=== PATIENT | male | born 1960 | race Caucasian/White ===

== ENCOUNTER 2016-12-05 20:57 | Emergency (ER) | payer OTHER ==
[~2016-12-05] VITALS: Ht 180.3 cm; Wt 93.9 kg
[2016-12-05 21:00] VITALS: TEMP 37; Ht 180.3 cm; Wt 93.9 kg
[2016-12-05] MEDS ORDERED: SODIUM CHLORIDE 0.9% 1000ML 1,000 ML IV STA (21:17)
[2016-12-05] MEDS ORDERED: SYN150 PO (21:34)
[2016-12-05] MEDS ORDERED: METF-384 PO (21:34)
[2016-12-05] MEDS ORDERED: ATOR-22 PO (21:34)
[2016-12-05] MEDS ORDERED: NVLGI/PEN SQ (21:34)
[2016-12-05] MEDS ORDERED: VICTOZA INJ (21:34)
[2016-12-05] MEDS ORDERED: INSDGIPEN SC (21:34)
[2016-12-05] MEDS ORDERED: LISI-729 PO (21:34)
[2016-12-05 21:41] LABS: BASO % 0.6 %; BASO ABS # 0.04 K/uL (0-0.2); COMPLETE YES; EOS % 4.5 %; HEMATOCRIT 34.4 % (42-52); IG% 0.1 %; LYMPH % 28.8 %; LYMPH ABS # 2.05 K/uL (1.2-3.4); MEAN CELL VOLUME 93.5 fL (80-100); MEAN CORPUSCULAR HEMOGLOBIN 32.9 pg (25-34); MEAN CORPUSCULAR HGB CONC 35.2 g/dl (32-36); MEAN PLATELET VOLUME 10.1 fL (7.4-10.4); PLATELET COUNT 247 K/uL (130-400); RED BLOOD COUNT 3.68 M/uL (4.7-6.1); WHITE BLOOD COUNT 7.13 K/uL (4.8-10.8)
--- NOTE | 2016-12-05 21:44 | DIAGNOSTIC IMAGING REPORT ---
CHEST ONE VIEW PORTABLE CLINICAL HISTORY: Pain, radiating to the abdomen. COMPARISON STUDY: No previous studies for comparison. FINDINGS: The cardiac and mediastinal contours are normal. There is no evidence of focal pulmonary consolidation. There is no evidence of failure. No pleural effusions are visualized.[ No free intraperitoneal air is visualized. IMPRESSION: No active disease in the chest. Electronically signed by: Mark Dewitt M.D. 12/05/2016 9:43 PM Dictated Date/Time: 12/05/2016 9:42 PM
[2016-12-05 21:54] LABS: PROTHROMBIN TIME (PATIENT) 10.3 SECONDS (9.0-12.0)
[2016-12-05 22:32] LABS: BUN/CREATININE RATIO 16.1 (10-20); CREATININE 1.4 mg/dl (0.60-1.40); POTASSIUM 5.6 mmol/L (3.5-5.1)
[2016-12-05 22:42] LABS: URINE APPEARANCE CLEAR (CLEAR); URINE BILIRUBIN NEG (NEG); URINE COLOR YELLOW; URINE NITRITE NEG (NEG); UROBILINOGEN NEG (NEG)
[2016-12-05 22:45] LABS: MANUAL MICROSCOPIC REQUIRED? NO; REVIEW REQ? NO
[2016-12-05 23:08] VITALS: BP 138/89; PULSE 94; O2SAT 97
--- NOTE | 2016-12-05 23:19 | EMERGENCY ROOM VISIT NOTE ---
History Report prepared by Howard: Chilango Santos Under the Supervision of: Dr. Chuck Calderon D.O. First contact with patient: 21:06 Chief Complaint: ABNORMAL LABS Stated Complaint: HIGH POTASSIUM LEVELS History of Present Illness The patient is a 56 year old male who presents to the Emergency Room with complaints of hyperkalemia beginning today. He had routine blood work for diabetes drawn today by his PCP which revealed hyperkalemia and the patient was referred to the ED for further evaluation. He states that his potassium was found to be 6.1. The patient has no complaints. He denies any nausea, palpitations, leg swelling, SOB, or vomiting. He states that he occasionally experiences intermittent chest pain, and nausea recently. The patient estimates that his blood sugar has been about 220 on average lately. He is on lisinopril. He has a history of a thyroidectomy. Source of History: patient Onset: Today Symptom Intensity: Potassium of 6.1 Associated Symptoms: + chest pain (intermittent), + nausea, No SOB Note: The patient denies any nausea, palpitations, or leg swelling. Review of Systems See HPI for pertinent positives & negatives. A total of 10 systems reviewed and were otherwise negative. Past Medical & Surgical Medical Problems: (1) Diabetes Surgical Problems: (1) H/O thyroidectomy Family History No pertinent family history stated. Social History Smoking Status: Never Smoker Occupation Status: employed Current/Historical Medications Scheduled Atorvastatin (Lipitor), 20 MG PO QPM Insulin Aspart (Novolog Flexpen), 12 UNITS SQ TIDM Insulin Glargine (Lantus Solostar), 16 UNITS SC QPM Levothyroxine Sodium (Synthroid), 150 MCG PO QAM Lisinopril (Zestril), 5 MG PO QAM Metformin Hcl (Glucophage), 1,000 MG PO BID [Victoza], 3 ML INJ QAM Allergies Coded Allergies: No Known Allergies (Unverified , 12/05/16) Physical Exam Vital Signs Date Time Temp Pulse Resp B/P (MAP) Pulse Ox O2 Delivery O2 Flow Rate FiO2 12/05/16 23:08 94 18 138/89 97 12/05/16 22:30 129/82 12/05/16 22:25 134/78 12/05/16 22:05 87 16 12/05/16 22:00 134/81 12/05/16 21:57 85 18 96 6/21/17 21:39 93 12/05/16 21:37 87 18 137/87 97 Room Air 12/05/16 21:36 137/87 12/05/16 21:00 37.0 96 18 145/87 97 Room Air Physical Exam GENERAL: Patient is awake, alert, and in no acute distress. Patient is resting comfortably and showing no signs of anxiety EYES: The conjunctivae are clear. The pupils are round and reactive. EARS, NOSE, MOUTH AND THROAT: The nose is without any evidence of any deformity. Mucous membranes are moist tongue is midline NECK: The neck is nontender and supple. RESPIRATORY: Normal respiratory effort is noted there is no evidence of wheezing rhonchi or rales CARDIOVASCULAR: Regular rate and rhythm noted there no murmurs rubs or gallops normal S1 normal S2 GASTROINTESTINAL: The abdomen is soft. Bowel sounds are present in all quadrants. Abdomen is nontender MUSCULOSKELETAL/EXTREMITIES: There is no evidence of gross deformity full range of motion is noted in the hips and shoulders SKIN: There is no obvious evidence of any rash. There are no petechiae, pallor or cyanosis noted. NEUROLOGIC: Patient is awake alert and oriented x3 strength is symmetric patellar reflexes are 2+ bilaterally Medical Decision & Procedures ER Provider Diagnostic Interpretation: X-ray results as stated below per interpretation by me and the radiologist. CHEST ONE VIEW PORTABLE FINDINGS: The cardiac and mediastinal contours are normal. There is no evidence of focal pulmonary consolidation. There is no evidence of failure. No pleural effusions are visualized.[ No free intraperitoneal air is visualized. IMPRESSION: No active disease in the chest. Electronically signed by: Mark Dewitt M.D. Laboratory Results 12/05/16 21:22 Red Blood Count 3.68, Mean Corpuscular Volume 93.5, Mean Corpuscular Hemoglobin 32.9, Mean Corpuscular Hemoglobin Concent 35.2, Mean Platelet Volume 10.1, Neutrophils (%) (Auto) 59.0, Lymphocytes (%) (Auto) 28.8, Monocytes (%) (Auto) 7.0, Eosinophils (%) (Auto) 4.5, Basophils (%) (Auto) 0.6, Neutrophils # (Auto) 4.21, Lymphocytes # (Auto) 2.05, Monocytes # (Auto) 0.50, Eosinophils # (Auto) 0.32, Basophils # (Auto) 0.04 12/05/16 21:22 Test 12/05/16 21:22 12/05/16 22:27 White Blood Count 7.13 K/uL (4.8-10.8) Red Blood Count 3.68 M/uL (4.7-6.1) Hemoglobin 12.1 g/dL (14.0-18.0) Hematocrit 34.4 % (42-52) Mean Corpuscular Volume 93.5 fL (80-100) Mean Corpuscular Hemoglobin 32.9 pg (25-34) Mean Corpuscular Hemoglobin Concent 35.2 g/dl (32-36) Platelet Count 247 K/uL (130-400) Mean Platelet Volume 10.1 fL (7.4-10.4) Neutrophils (%) (Auto) 59.0 % Lymphocytes (%) (Auto) 28.8 % Monocytes (%) (Auto) 7.0 % Eosinophils (%) (Auto) 4.5 % Basophils (%) (Auto) 0.6 % Neutrophils # (Auto) 4.21 K/uL (1.4-6.5) Lymphocytes # (Auto) 2.05 K/uL (1.2-3.4) Monocytes # (Auto) 0.50 K/uL (0.11-0.59) Eosinophils # (Auto) 0.32 K/uL (0-0.5) Basophils # (Auto) 0.04 K/uL (0-0.2) RDW Standard Deviation 44.9 fL (36.4-46.3) RDW Coefficient of Variation 13.1 % (11.5-14.5) Immature Granulocyte % (Auto) 0.1 % Immature Granulocyte # (Auto) 0.01 K/uL (0.00-0.02) Prothrombin Time 10.3 SECONDS (9.0-12.0) Prothromb Time International Ratio 1.0 (0.9-1.1) Activated Partial Thromboplast Time 26.2 SECONDS (21.0-31.0) Partial Thromboplastin Ratio 1.0 Anion Gap 10.0 mmol/L (3-11) Est Creatinine Clear Calc Drug Dose 67.3 ml/min Estimated GFR () 63.7 Estimated GFR (Non- 55.0 BUN/Creatinine Ratio 16.1 (10-20) Calcium Level 9.0 mg/dl (8.5-10.1) Total Bilirubin 0.4 mg/dl (0.2-1) Direct Bilirubin 0.1 mg/dl (0-0.2) Aspartate Amino Transf (AST/SGOT) 16 U/L (15-37) Alanine Aminotransferase (ALT/SGPT) 30 U/L (12-78) Alkaline Phosphatase 99 U/L (45-117) Total Protein 7.3 gm/dl (6.4-8.2) Albumin 4.1 gm/dl (3.4-5.0) Lipase 496 U/L (73-393) Urine Color YELLOW Urine Appearance CLEAR (CLEAR) Urine pH 5.0 (4.5-7.5) Urine Specific [place] 1.020 (1.000-1.030) Urine Protein NEG (NEG) Urine Glucose (UA) 3+ (NEG) Urine Ketones NEG (NEG) Urine Occult Blood NEG (NEG) Urine Nitrite NEG (NEG) Urine Bilirubin NEG (NEG) Urine Urobilinogen NEG (NEG) Urine Leukocyte Esterase NEG (NEG) Laboratory results per my review. Medications Administered Medications (Trade) Dose Ordered Sig/Umu Route Start Time Stop Time Status Last Admin Dose Admin Sodium Chloride 1,000 ml @ 999 mls/hr Q1H1M STAT IV 12/05/16 21:17 12/05/16 22:17 DC 12/05/16 21:30 999 MLS/HR ECG Indication: other (hyperkalemia) Rate (beats per minute): 87 Rhythm: normal sinus Findings: no ectopy, other (No acute ST segment abnormalities) Comparison ECG Date: no prior available ED Course 2113: The patient was evaluated in room B7. A complete history and physical examination were performed. 2116: Ordered NSS 1,000 ml @ 999 mls/hr IV. 2304: Upon reevaluation, the patient is resting comfortably. I discussed the results and treatment plan with him. He verbalized agreement of the treatment plan. The patient was discharged home. Medical Decision Differential diagnosis: Etiologies such as premature contractions, electrolyte abnormality, cardiac dysrhythmia, thyroid dysfunction, pulmonary embolism, infection, gastrointestinal, as well as others were entertained. Nursing notes reviewed. The patient is a 56-year-old diabetic who has a history of mild renal insufficiency who was placed on lisinopril by his primary care physician. He presented to the emergency department this evening for abnormal laboratory studies. The patient was found have hyperkalemia as an outpatient was sent to the emergency department. He was treated with IV fluids. Repeat laboratory studies showed an elevated potassium as well as an elevated creatinine but I feel that the patient can manage this as an outpatient at this time. His EKG showed no acute changes. I encouraged him to have his laboratory studies repeated in 24 hours and to hold his lisinopril until he was reevaluated by his primary care physician. The patient states that he's been placed on lisinopril for renal protection and not for hypertension. He may need to be placed on a different antihypertensive. He was encouraged to return emergency department immediately if symptoms change worsen or the need arises. Impression Primary Impression: Hyperkalemia Scribe Attestation The scribe's documentation has been prepared under my direction and personally reviewed by me in its entirety. I confirm that the note above accurately reflects all work, treatment, procedures, and medical decision making performed by me. Departure Information Dispostion Home / Self-Care Referrals No Doctor, Assigned (PCP) Forms HOME CARE DOCUMENTATION FORM, IMPORTANT VISIT INFORMATION, WORK / SCHOOL INSTRUCTIONS Patient Instructions Hypertension Control, [facility] Additional Instructions Call your family in the morning to schedule a follow-up appointment. Continue drinking plenty clear liquids. I would recommend repeat laboratory studies done in 24 hours to reassess your kidney function. Hold your lisinopril until your cleared by her primary care physician.
== END 2016-12-05 23:05 | disposition home or self-care (01) ==
LOC: C.EDB 21:00
DX: E87.5 Hyperkalemia (principal); E11.9 Type 2 diabetes mellitus without complications; Z79.4 Long term (current) use of insulin